=== PATIENT | male | born 1980 | race Caucasian/White ===

== ENCOUNTER 2020-03-07 14:55 | Outpatient (REF) | payer BC, SELFPAY ==
[2020-03-07 13:29] LABS: Calculated LDL 177 mg/dL (<100); Cholesterol 265 mg/dL (<200); Glucose 103 mg/dL (74-106); HDL Cholesterol 44 mg/dL (40-60); Triglyceride 224 mg/dL (<150)
== END 2020-03-07 15:15 ==
LOC: NCHCN 14:55
PROVIDERS: PCP Family Medicine; Visit Provider Family Medicine
DX: Z00.00 Encounter for general adult medical examination without abnormal findings (principal)
CPT/HCPCS: 80061; 82947

== ENCOUNTER → 2021-01-22 01:06 | Outpatient (CLI) | payer BC, SELFPAY ==
--- NOTE | 2021-01-22 07:00 | DI.MRI_ITS ---
Exam(s) MR ANGIO BRAIN WO EXAM: MR ANGIO BRAIN WO CLINICAL HISTORY: right pulsatile tinnitus,[id number].a1 TECHNIQUE: Performed with [id number] sequence. No IV contrast COMPARISON: No exams were available for comparison FINDINGS: Field of view of this study is from the skull base up. ANTERIOR CIRCULATION: Both internal carotid arteries are patent in the skull base-carotid canals. No aneurysms at this lev el. The intracavernous internal carotid arteries appear unremarkable. Supraclinoid aspects appear u nremarkable. Both A1 segments are patent as are the anterior cerebral arteries. There is no evidenc e of aneurysm at the level of the anterior communicating artery. Both middle cerebral arteries are patent. No intraluminal thrombus. No aneurysms. POSTERIOR CIRCULATION: Both vertebral arteries contribute to the formation of the basilar artery at the skull base. The lef t vertebral artery is dominant. There is no significant stenosis nor aneurysm in the basilar artery. Distally the basilar artery gives off superior cerebellar arteries and terminates as predominantly a patent left posterior cerebral artery. The right posterior cerebral artery is predominantly fed by a posterior communicating artery on the right side of the [id number]. There is no evidence an eurysm at tip of the basilar artery nor elsewhere in the [id number]. Axial T2 and FLAIR whole brain sequences reveal no abnormal intra-axial signal. No evidence of intra cranial hemorrhage, mass effect, or shift of midline structures. There are no extra-axial fluid sofiya ections. Ventricles are not enlarged or shifted. Expected flow voids are noted. Incidentally noted is a small 4 fluid level in the left maxillary sinus as well as a tiny fluid level in the right maxillary sinus. There is also mucosal thickening in the right sphenoid sinus and the some ethmoidal air cells bilaterally. Frontal sinuses are clear. IMPRESSION: 1. No evidence of aneurysm on this brain MRA study. 2. No significant intra-axial brain findings on the accompanying T2 and FLAIR axial sequences. DATA REPOSITORY:
== END ==
PROVIDERS: PCP Family Medicine; Visit Provider Otolaryngology
DX: H93.A1 Pulsatile tinnitus, right ear (principal)
CPT/HCPCS: 70544

== ENCOUNTER 2024-11-09 10:01 | Emergency (ER) | payer BC, SELFPAY ==
[2024-11-09] VITALS (15 sets, daily range): BP systolic 109–136; BP diastolic 74–97; PULSE 49–65; RESP 12–18; TEMP 36.6–36.8; O2SAT 98–100
--- NOTE | 2024-11-09 10:00 | RT.EKG_ITS ---
APPROVED REPORT Exam: Resting ECG Reason for Exam: Chest Pain Patient Location: E HR:53 bpm ECG Measurements Heart Rate 53 AXIS WA 147 P 46 QRSd 62 QRS 54 QT 391 T 64 QTc 369 Conclusion Sinus bradycardia...rate< 60 No Occlusion PA
--- NOTE | 2024-11-09 10:08 | ED.GENADUL_ITS ---
Discharge Plan Disposition Patient Disposition: Home Discharge Details Clinical Impression: Chest pain, unspecified, Hyperbilirubinemia Primary Care Provider: Jose Zaragoza ED Provider: Jose Sam Home Meds and New Rx's Prescriptions: No Action No Known Home Meds Discharge Instructions Additional Instructions: You are seen in the emergency department for your chest pain. Your blood work showed no sign of heart attack. You had a mild elevation of your bilirubin. This is a product made by your liver. Please follow-up with your primary care provider concerning this incidental finding as we discussed. If you develop worsening chest pain if you pass out or if you have any other concerns please return to the emergency department. HPI General Date/Time Provider Initiated Documentation: 11/09/24 10:08 . HPI Narrative: MDM This is an overall quite well-appearing normothermic and not tachycardic 44-year-old male with chest pain. EKG showing sinus bradycardia at a rate of 53. Normal axis. Intervals within normal limits. No ST segment abnormalities. T wave flattening in aVL. No acute injury pattern. No prior for comparison. Given risk factors will obtain troponin to rule stratify for ACS. Patient was bradycardic but was not short of breath and his [place] was within normal limits and he had no tick bite so is not concern for tickborne illness. No tearing quality to suggest aortic dissection. No trauma to chest equal breath sounds make my suspicion low for pneumothorax. Soft nontender abdomen so doubt acute cholecystitis. Given elevated BMI we will obtain lipase to assess for pancreatitis. No cough nor abnormal lung sounds nor fevers so doubt pneumonia. Patient has not been vomiting so my suspicion is low for esophageal rupture. Not tachycardic nor hypotensive so doubt cardiac tamponade. No positional component to suggest pericarditis. I considered PE however the patient is PERC negative so I did not order D-dimer. Will reassess following labs and two-view chest x-ray. 11:38 AM Comprehensive metabolic panel showing normal creatinine. No prior for comparison. Mild hyperbilirubinemia. No acute LFT abnormalities. Initial reassuring troponin. CBC lacks anemia thrombocytopenia and leukocytosis. 12:25 PM Repeat troponin reassuring. Negative delta. Normal lipase. Patient and I discussed that he should return if he develops syncope chest pain that radiates to his jaw or if he has any other concerns. I advised PCP follow-up in the next 1 to 2 weeks. Patient understood his return indications and was discharged with an empiric trial of expectant outpatient management. We discussed that he should return if he developed any right upper quadrant pain and any nausea or vomiting or if he had any other concerns. HEART SCORE Chest pain Diagnostic Protocol: [-History/Physical/Gestalt: Slightly Suspicious (0)] [- EKG: Nonspecific repolarization (+1)] [- AGE: 45-65 (+1)] [- RISK FACTORS: 1 - 2 risk factors (+1)] [-TROPONIN: <= normal limit (0)] - TOTAL SCORE: 3 - Risk Factors: DM, current or recent smoker, HTN, HLD, family hx of CAD, obesity - INTERPRETATION: With a total score of 3 or less, risk of major cardiac event within six weeks 1.7%, likely lower with two negative troponins. [I explained to the patient that the risk of subsequent major cardiac event within 1 month is not 0, however risk predicted to be less than 2%. Patient verbalized understanding, accepts this risk and shared and the decision for discharge with PCP follow-up for further evaluation and management. They understand to return to the ED immediately with any worsening symptoms, new symptoms or other concerns.] HPI This is a male with a family history of heart disease presenting with chest pain. He has been experiencing chest pain, localized to the left center of his chest, for the past 3 weeks. The pain, which he describes as similar to heartburn, has progressively worsened, rating it as a 6 on a scale of 10 at its worst. The pain is described as burning and constant, but it can be temporarily relieved by finding a comfortable position. It intensifies when he breathes in and after prolonged periods of working on the computer. He reports no shortness of breath or exacerbation of the pain during physical activity such as walking. He also reports no history of blood clots in his legs or lungs, or any previous heart attacks. His blood pressure is within normal limits, and while he has a family history of high cholesterol, his own levels have never been problematic. He reports no rashes on his chest and no recent falls or injuries to the chest. The pain slightly increases when he lies flat on his back with his head extended backward. He has also started to experience shoulder pain, which he describes as a burning sensation. Exam General: Well-appearing in no acute distress speaking in complete sentences. Head: Normocephalic, atraumatic. Eye: Extraocular eye movements intact. No conjunctival injection. No scleral icterus. Ear, nose, mouth, throat: Grossly normal inspection. Normal voice, handling secretions normally. Neck: Trachea midline. Cardiovascular: Well-perfused distal extremities. Regular rate and rhythm. Respiratory: Nonlabored respiration. Clear lungs bilaterally. Gastrointestinal: Nondistended abdomen. Soft nontender. Musculoskeletal: No edema. Moving all 4 extremities spontaneously. Skin: Normal for age and race, grossly normal temperature and turgor. No acute rash. Neurologic: Alert and appropriate, no apparent acute deficits. Psychiatric: Mood and manner are appropriate. Grooming and personal hygiene are appropriate. Related Data Home Medications ?Medication ?Instructions ?Recorded ?Confirmed Unknown [No Known Home Meds] 09/19/20 0 11/09/24 Allergies Allergy/AdvReac Type Severity Reaction Status Date / Time Tetracyclines Allergy Anaphylaxis Verified 11/09/24 10:08 General Stated Complaint: Chest Pain TEDDY: 3 Course Vital Signs Vital signs: Vital Signs Temperature 36.6 C 11/09/24 10:04 Pulse 50 L 11/09/24 10:04 Respiratory Rate 18 11/09/24 10:04 Blood Pressure 136/97 H 11/09/24 10:04 Pulse Oximetry 98 11/09/24 10:04 Temperature 36.6 C 11/09/24 10:04 Temperature Source Tympanic 11/09/24 10:04 Pulse 50 L 11/09/24 10:04 Respiratory Rate 18 11/09/24 10:04 Blood Pressure 136/97 H 11/09/24 10:04 Pulse Oximetry 98 11/09/24 10:04 Pain Level 4 11/09/24 10:04 PFSH All Active Problems (Updated 11/09/24 @ 11:39 by Jose Sam MD) Hyperbilirubinemia (Acute) Chest pain, unspecified (Acute) Pulsatile tinnitus of right ear (Acute) Conductive hearing loss of right ear (Acute) Chronic serous otitis media, right ear (Acute) Medical History Pneumonia Surgical History History of appendectomy Hx of cholecystectomy Family History Father Hearing loss Heart attack Social History Smoking/Tobacco Use Status: Never Smoking risk assessment performed?: Yes Alcohol Intake: current Alcohol Intake frequency: a few times a month Drug use: Never Housing: house Pets and animals: Yes Pets and animals: dog(s) What is your relationship status?: Panel score (0-1 are the most socially isolated patients): 0 Do you feel safe at home: Yes Do you feel safe in your relationship?: Yes POCUS Exam (ED) Limited Cardiac Exam DATE OF EXAM: 11/09/24 TIME OF EXAM: 11:07 PROVIDER THAT PERFORMED THE STUDY: Jose Sam IS THIS A REPEAT EXAM DURING THIS ENCOUNTER: no REASON FOR EXAM: Chest pain VISUALIZED STRUCTURES: Four Chambers, Left ventricle and LVOT VIEW OBTAINED: Apical 4-Chamber, Parasternal long-axis and Subxiphoid PERTINENT FINDINGS/IMPRESSION: No pericardial effusion and No RV dilation DIFFERENTIAL DIAGNOSES: Aortic outflow track less than 4 cm, good squeeze, RV less than LV, no significant pericardial effusion. Exam complete
--- NOTE | 2024-11-09 10:30 | DI.RAD_ITS ---
Exam(s) XR CHEST 2V PA LATERAL EXAM: XR CHEST 2V PA LATERAL CLINICAL HISTORY: Chest pain. TECHNIQUE: 2D digital imaging was performed. COMPARISON: No exams were available for comparison FINDINGS: 2 views: Heart size is normal. The mediastinum is not widened. Lungs are clear. No infiltrates nor pleural effusions. Bilateral diaphragm scalloping noted. IMPRESSION: No acute pulmonary findings. DATA REPOSITORY: RADIATION DOSE DELIVERED:
[2024-11-09] MEDS: Mylanta Suspension 30 ML CUP PO (11:05)
[2024-11-09] MEDS: Aspirin 81 MG CHEW 324 MG CH (11:05)
[2024-11-09] MEDS: Famotidine 20 MG/2 ML VIAL 40 MG IVP (11:05)
[2024-11-09 11:16] LABS: Abs Immature Grans 0.01 10^3/uL (0.0-0.06); HCT 45.1 % (40.0-50.0); HGB 15.3 g/dL (13.5-17.5); Immature Grans % 0.2 %; MCH 29.0 pg (27.0-33.0); MCHC 33.9 % (32.0-36.0); MCV 86 fL (80-95); MPV 9.6 fL (8.0-11.0); Platelet Count 255 10^3/uL (130-400); RBC 5.27 10^6/uL (4.36-5.78); RDW 12.5 % (11.8-14.1); RDW-SD 39.3 fL; WBC 6.11 10^3/uL (4.4-10.8)
[2024-11-09 11:27] LABS: ALT 29 U/L (16-63); AST 14 U/L (15-37); Albumin 4.3 g/dL (3.4-5.0); Alkaline Phosphatase 96 U/L (46-116); Anion Gap 6.5 mmol/L (3-11); BUN 10 mg/dL (7-18); Bilirubin, Total 1.5 mg/dL (0.2-1.0); CO2 31.5 mmol/L (21.0-32.0); Calcium 8.8 mg/dL (8.5-10.1); Chloride 102 mmol/L (98-107); Estimated GFR 94.00 (mL/min/1.73m2); Glucose 87 mg/dL (74-106); Potassium 3.9 mmol/L (3.5-5.1); Sodium 140 mmol/L (136-145); Total Protein 7.9 g/dL (6.4-8.2); Troponin I 5 ng/L (<or=76)
[2024-11-09 11:44] LABS: Lipase 25 U/L (<78)
[2024-11-09 12:20] LABS: Troponin I 5 ng/L (<or=76)
[2024-11-09] MEDS: Acetaminophen 500 MG TAB 1000 MG PO (12:51)
== END 2024-11-09 13:02 | disposition home or self-care (01) ==
LOC: ER 12:06
PROVIDERS: Emergency Provider Emergency Medicine; PCP Family Medicine
DX: R07.9 Chest pain, unspecified (principal); E80.6 Other disorders of bilirubin metabolism
CPT/HCPCS: 99285; 99284; 36415; 96374; 80053; 83690; 93005; 93308; 71046; 84484; 85025; 93010